=== PATIENT | female | born 1945 | race Two or more races ===

== ENCOUNTER → 2016-06-12 | Outpatient (CLI) | payer OTHER ==
[2014-07-24 16:47] VITALS: BP 145/75
[~2016-06-12] MED LIST: ATOR40TA59 PO; CARV3.122 PO; CLOP75TA27 PO; Hydrocodone Bit/Acetaminophen PO; INSU100I18 SQ; INSU100I27 SQ; LEVO75TA5 PO; LISI-338 PO; METF500T4 PO; METF850T2 PO
--- NOTE | 2016-06-12 16:41 | RAD ---
Lumbar spine radiographs History: Left sciatica for 5-6 months, fall. Comparison: None. Findings: AP and lateral views lumbar spine, 3 images. Osseous structures appear demineralized. On the lateral view, there also appears to be mild quantum mottle artifact which somewhat limits evaluation. There may be transitional anatomy present. No acute fracture or acute malalignment is identified. Multilevel facet degeneration is seen. Relatively mild multilevel degenerative disc disease is present. Impression: 1. Limited examination. No acute osseous traumatic injury identified. 2. Relatively mild degeneration.
== END | disposition home or self-care (01) ==
LOC: DXRADRC 15:56
PROVIDERS: ATTEND Nurse Practitioner Family
DX: M51.36 Other intervertebral disc degeneration, lumbar region (principal); M54.32 Sciatica, left side
CPT/HCPCS: 72100

== ENCOUNTER → 2016-07-07 | Outpatient (CLI) | payer OTHER ==
[2014-07-24 16:47] VITALS: BP 145/75
--- NOTE | 2016-07-07 14:13 | RAD ---
Indication right shoulder pain for 11 months. AP and axillary views of the right shoulder were obtained. There are significant degenerative changes at the glenohumeral joint. There is suspect bony demineralization. Mild degenerative changes are seen at the AC joint. Acute bony finding is not apparent
== END | disposition home or self-care (01) ==
LOC: DXRADRC 13:58
PROVIDERS: ATTEND Orthopaedic Surgery Sports Medicine
DX: M25.511 Pain in right shoulder (principal)
CPT/HCPCS: 73030

== ENCOUNTER 2016-09-11 16:25 | Observation (INO) | payer OTHER ==
[~2016-09-11] VITALS: Ht 142.2 cm; Wt 69.0 kg
[~2016-09-11 16:25] MED LIST changes: -CLOP75TA27 PO; +CLOP75TA57 PO
[2016-09-11] MEDS ORDERED: IV NORMAL SALINE 1,000ML 1,000 ML IV ONE (17:00)
--- NOTE | 2016-09-11 17:04 | RAD ---
Indication chest pain. A single view of the chest was obtained. Comparison is made to an examination March 20, 2016. Postoperative changes are noted. There is mild cardiomegaly. There is no congestive heart failure or focal infiltrate. Significant pleural fluid is not seen. There is no pneumothorax. There are degenerative changes about the shoulders. IMPRESSION: Mild cardiomegaly. No definite acute or focal process is seen in the chest
[2016-09-11 17:09] LABS: BASO # 0.1 x10^3/uL (0.0-0.2); BASO % 1 % (0-3); EOS # 0.2 x10^3/uL (0.0-0.7); EOS % 4 % (0-3); HEMATOCRIT 36.3 % (36.0-47.0); LYMPH # 1.7 x10^3/uL (1.0-4.8); LYMPH % 28 % (24-48); MEAN CORPUSCULAR HEMOGLOBIN 28 pg (25-35); MEAN CORPUSCULAR HGB CONC 33 g/dL (31-37); MEAN CORPUSCULAR VOLUME 84 fL (79-100); MONO # 0.7 x10^3/uL (0.0-1.1); MONO % 11 % (0-9); NEUT # 3.5 x10^3uL (1.8-7.7); NEUT % 56 % (31-73); PLATELET COUNT 157 x10^3/uL (140-400); RED BLOOD COUNT 4.35 x10^6/uL (3.50-5.40); RED CELL DISTRIBUTION WIDTH 14.4 % (11.5-14.5); WHITE BLOOD COUNT 6.3 x10^3/uL (4.0-11.0)
--- NOTE | 2016-09-11 17:15 | PHYS DOC ---
Past History Past Medical History: Diabetes, High Cholesterol, Hypertension, Hypothyroid Past Surgical History: Coronary Bypass Surgery Alcohol Use: None Drug Use: None Adult General Chief Complaint Chief Complaint: CHEST PAIN HPI HPI Patient is a 71-year-old female presenting to the emergency department for evaluation of multiple complaints including chest pain dizziness and nausea. Chest pain cared yesterday in her mid low chest and is sharp in nature and lasted for several minutes and then went away on its own. She denied any diaphoresis nausea vomiting or shortness of breath with the pain at that time. The pain was nonexertional. Patient all day today has been having nausea and a dizzy sensation. There is a language barrier but the dizziness is more of a passed out and they confirmed it is not a room spinning sensation to me. 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 Review of Systems Review of Systems Constitutional: Denies fever or chills [] Eyes: Denies change in visual acuity, redness, or eye pain [] HENT: Denies nasal congestion or sore throat [] Respiratory: Denies cough or shortness of breath [] Cardiovascular: + CP GI: Denies abdominal pain. + nausea. No vomiting, bloody stools or diarrhea [] : Denies dysuria or hematuria [] Musculoskeletal: Denies back pain or joint pain [] Integument: Denies rash or skin lesions [] Neurologic: Denies headache, focal weakness. + sensory changes [] Current Medications Current Medications Current Medications Medications (Trade) Dose Ordered Sig/Shakira Start Time Stop Time Status Last Admin Dose Admin Aspirin (Children'S Aspirin) 324 mg 1X ONCE 09/11/16 17:20 09/11/16 17:21 Ondansetron HCl (Zofran) 4 mg 1X ONCE 09/11/16 17:20 09/11/16 17:21 Sodium Chloride 1,000 ml @ 1,000 mls/hr 1X ONCE 09/11/16 17:00 09/11/16 17:59 Allergies Allergies Allergies Coded Allergies Type Severity Reaction Last Updated Verified No Known Drug Allergies 10/18/13 No Physical Exam Physical Exam Constitutional: Well developed, well nourished, no acute distress, non-toxic appearance. [] HENT: Normocephalic, atraumatic, bilateral external ears normal, oropharynx moist, no oral exudates, nose normal. [] Eyes: PERRLA, EOMI, conjunctiva normal, no discharge. [] Neck: Normal range of motion, no tenderness, supple, no stridor. [] Cardiovascular:Heart rate bradycardic with regular rhythm, no murmur [] Lungs & Thorax: Bilateral breath sounds clear to auscultation [] Abdomen: Bowel sounds normal, soft, no tenderness, no masses, no pulsatile masses. [] Skin: Warm, dry, no erythema, no rash. [] Back: No tenderness, no CVA tenderness. [] Extremities: No tenderness, no cyanosis, no clubbing, ROM intact, no edema. [] Neurologic: Alert and oriented X 3, normal motor function, normal sensory function, no focal deficits noted. [] Current Patient Data Vital Signs Vital Signs Date Time Temp Pulse Resp B/P (MAP) Pulse Ox O2 Delivery O2 Flow Rate FiO2 09/11/16 16:45 98.3 50 20 97 Room Air EKG EKG Sinus bradycardia at 47 bpm with normal axis no obvious ST elevation or depression and flattened and inverted T waves in leads V2 through V4 Radiology/Procedures Radiology/Procedures Indication chest pain. A single view of the chest was obtained. Comparison is made to an examination March 20, 2016. Postoperative changes are noted. There is mild cardiomegaly. There is no congestive heart failure or focal infiltrate. Significant pleural fluid is not seen. There is no pneumothorax. There are degenerative changes about the shoulders. IMPRESSION: Mild cardiomegaly. No definite acute or focal process is seen in the chest Course & Med Decision Making Course & Med Decision Making Patient certainly has multiple cardiac risk factors but she has atypical symptoms for her chest pain. Will get labs chest x-ray EKG and reassess. I spoke to the hospitalist Dr. Burrell and he agreed with admission. We'll give IV magnesium and by mouth calcium and trend her troponins and have cardiology consult on her as well. Patient and daughter aware and agreeable with plan. Dragon Disclaimer Dragon Disclaimer This chart was dictated in whole or in part using Voice Recognition software in a busy, high-work load, and often noisy Emergency Department environment. It may contain unintended and wholly unrecognized errors or omissions. Departure Departure: Impression: Primary Impression: Chest pain Additional Impressions: Dizziness Nausea Hypomagnesemia Hypocalcemia Elevated brain natriuretic peptide (BNP) level Disposition: 09 ADMITTED INPATIENT Admitting Physician: Cindy Burrell Condition: STABLE Referrals: WENDY CAST APRN (PCP) Problem Qualifiers Primary Impression: Chest pain Chest pain type: unspecified Qualified Codes: R07.9 - Chest pain, unspecified STANISLAW REYES DO Sep 11, 2016 17:15
--- NOTE | 2016-09-11 17:18 | EKG ---
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
[2016-09-11] MEDS ORDERED: ASPIRIN 81 MG TAB.CHEW PO ONE (17:20)
[2016-09-11] MEDS ORDERED: ONDANSETRON PF 4 MG/2 ML VIAL. IV ONE (17:20)
[2016-09-11 17:46] LABS: ALBUMIN 3.5 g/dL (3.4-5.0); ALBUMIN/GLOBULIN RATIO 1.2 (1.0-1.7); CALCIUM 8.3 mg/dL (8.5-10.1); CREATININE 0.8 mg/dL (0.6-1.0); GFR 70.7; MAGNESIUM 1.2 mg/dL (1.8-2.4); POTASSIUM 4.5 mmol/L (3.5-5.1); TOTAL BILIRUBIN 0.3 mg/dL (0.2-1.0); TOTAL PROTEIN 6.5 g/dL (6.4-8.2)
[2016-09-11] MEDS ORDERED: MAGNESIUM SULFATE 2GM 50 ML IV ONE (18:00)
[2016-09-11] MEDS ORDERED: ONDANSETRON PF 4 MG/2 ML VIAL. IV PRN (18:00)
[2016-09-11 18:48] VITALS: BP 154/72
[2016-09-11 18:54] LABS: BILIRUBIN,URINE NEG (NEG); CLARITY,URINE CLEAR; COLOR,URINE COLORLESS; GLUCOSE,URINE NEG (NEG); NITRITE,URINE NEG (NEG); UROBILINOGEN,URINE 0.2 mg/dL (0.2 mg/dL)
[2016-09-11 19:00] LABS: BACTERIA,URINE FEW /HPF (0-FEW); RBC,URINE 0 /HPF (0-2); SQUAMOUS EPITHELIAL CELL,UR OCC /LPF
[2016-09-11] MEDS ORDERED: DEXTROSE 50% 25 GM / 50ML DISP.SYRIN. IV PRN (19:15)
[2016-09-11] MEDS ORDERED: SITA100T PO (20:30)
[2016-09-11] MEDS ORDERED: PIOG30TA41 PO (20:30)
[2016-09-11] MEDS ORDERED: LISI10TA2 PO (20:30)
[2016-09-11] MEDS ORDERED: INSULIN DETEMIR 300 UNITS/3 ML INSULN.PEN. SQ SCH (21:00)
[2016-09-11] MEDS ORDERED: ATORVASTATIN CALCIUM 20 MG TABLET PO SCH (21:00)
[2016-09-11] MEDS: metFORMIN 500 MG TABLET PO SCH (21:06)
[2016-09-11] MEDS: CARVEDILOL 3.125 MG TABLET PO SCH (21:06)
[2016-09-11 23:14] VITALS: BP 132/72
[2016-09-12 05:01] LABS: BASO % 1 % (0-3); EOS # 0.2 x10^3/uL (0.0-0.7); EOS % 5 % (0-3); LYMPH # 2.1 x10^3/uL (1.0-4.8); LYMPH % 43 % (24-48); MEAN CORPUSCULAR HEMOGLOBIN 27 pg (25-35); MEAN CORPUSCULAR HGB CONC 32 g/dL (31-37); MEAN CORPUSCULAR VOLUME 84 fL (79-100); MONO # 0.6 x10^3/uL (0.0-1.1); MONO % 13 % (0-9); NEUT # 1.9 x10^3uL (1.8-7.7); NEUT % 39 % (31-73); PLATELET COUNT 138 x10^3/uL (140-400); RED BLOOD COUNT 4.07 x10^6/uL (3.50-5.40); RED CELL DISTRIBUTION WIDTH 14.6 % (11.5-14.5); WHITE BLOOD COUNT 4.8 x10^3/uL (4.0-11.0)
[2016-09-12 05:18] LABS: ALBUMIN 3.1 g/dL (3.4-5.0); CALCIUM 7.9 mg/dL (8.5-10.1); CREATININE 0.8 mg/dL (0.6-1.0); GFR 70.7; POTASSIUM 4.1 mmol/L (3.5-5.1); TOTAL BILIRUBIN 0.3 mg/dL (0.2-1.0); TOTAL PROTEIN 6.2 g/dL (6.4-8.2)
[2016-09-12 06:01] VITALS: BP 142/72
[2016-09-12] MEDS ORDERED: LEVOTHYROXINE 75 MCG TABLET PO SCH (07:00)
[2016-09-12] MEDS ORDERED: CALCIUM CARB/VIT D3 500/200 TABLET PO SCH (08:00)
[2016-09-12] MEDS: metFORMIN 500 MG TABLET PO SCH (08:10)
[2016-09-12] MEDS: CARVEDILOL 3.125 MG TABLET PO SCH (08:11)
[2016-09-12] MEDS ORDERED: LISINOPRIL 10 MG TABLET PO SCH (09:00)
--- NOTE | 2016-09-12 09:51 | PDOC2 ---
CONSULT Date of Admission DATE: 09/12/16 TIME: 09:42 Reason for Consult: cp, dizziness Problem List Problems Medical Problems: (1) Chest pain Status: Acute (2) Dizziness Status: Acute (3) Elevated brain natriuretic peptide (BNP) level Status: Acute (4) Hypocalcemia Status: Acute (5) Hypomagnesemia Status: Acute (6) Nausea Status: Acute History of Present Illness Patient is a 71-year-old female who presented to the emergency department for evaluation of chest pain dizziness and nausea. She reports chest pain which started yesterday in her mid to low chest. The pain is described as sharp, non radiating and lasting several minutes. It was non exertional and resolved spontaneously. She denied any associated symptoms. She also complained of a lightheadedness on sitting up or standing and feeling like she would fall. She reportedly felt better if she lay down. she had associated nausea. she has a history of bypass surgery in 1999 and her prior anginal symptoms were reportedly shortness of breath. She denies any dyspnea symptoms currently. She denied any congestive symptoms or palpitations. She does not speak [place]serratian but is accompanied by an Montserratian speaking family member. Functional capacity is reported as cognos developer without problems, ambulates with a cane for balance. Past Medical History Cardiac cath 12/01/13 Severe 3 vessel coronary disease, patent BALTAZAR to LAD, Patent LCX stent, Patent stents in RCA, diffuse small vessel disease. MPI 10/18/13 Small to moderate sized reversible defect involving apicolateral wall and extending into distal anterolateral wall consistent with ischemia. Echo 04/18/14 LVEF 55-60%, normal wall motion. 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 Current Medications Current Medications Aspirin (Children'S Aspirin) 324 mg 1X ONCE PO Last administered on 09/11/16t 17:17; Start 09/11/16 at 17:20; Stop 09/11/16 at 17:21; Status DC Sodium Chloride 1,000 ml @ 1,000 mls/hr 1X ONCE IV Last administered on 17:18; Start 09/11/16 at 17:00; Stop 09/11/16 at 17:59; Status DC Ondansetron HCl (Zofran) 4 mg 1X ONCE IV Last administered on 09/11/16 17:17; Start 09/11/16 at 17:20; Stop 09/11/16 at 17:21; Status DC Magnesium Sulfate 50 ml @ 25 mls/hr 1X ONCE IV Last administered on 09/11/16 18:00; Start 09/11/16 at 18:00; Stop 09/11/16 at 19:59; Status DC Calcium/Vitamin D (Oscal D 500mg/ 200uts) 1 tab BIDWMEALS PO Last administered on 09/12/16 08:10; Start 09/12/16 at 08:00 Ondansetron HCl (Zofran) 4 mg PRN Q4HRS PRN IV NAUSEA/VOMITING; Start 09/11/16 at 18:00; Stop 09/12/16 at 17:59 Dextrose 12.5 gm PRN Q15MIN PRN IV SEE COMMENTS; Start 09/11/16 at 19:15 Carvedilol (Coreg) 3.125 mg BID PO Last administered on 09/12/16 08:11; Start 09/11/16 at 21:00 Insulin Detemir (Levemir) 22 units QHS SQ Last administered on 09/11/16 21:12; Start 09/11/16 at 21:00 Levothyroxine Sodium (Synthroid) 75 mcg DAILY07 PO Last administered on 06:31; Start 09/12/16 at 07:00 Lisinopril (Prinivil) 10 mg DAILY PO Last administered on 09/12/16 08:11; Start 09/12/16 at 09:00 Metformin HCl (Glucophage) 500 mg BIDWMEALS PO Last administered on 09/12/16 08 :10; Start 09/11/16 at 20:45 Atorvastatin Calcium (Lipitor) 40 mg QHS PO Last administered on 09/11/16 21:06 ; Start 09/11/16 at 21:00 Pioglitazone HCl (Actos) 30 mg DAILYWLUN PO ; Start 09/12/16 at 12:00 Linagliptin (Tradjenta) 5 mg DAILYWLUN PO ; Start 09/12/16 at 12:00 Active Scripts Active Reported Actos (Pioglitazone Hcl) 30 Mg Tablet 30 Mg PO DAILYWLUN Januvia (Sitagliptin Phosphate) 100 Mg Tablet 100 Mg PO DAILYWLUN Lisinopril 10 Mg Tablet 10 Mg PO DAILY Levemir Flextouch (Insulin Detemir) 100 Unit/1 Ml Insuln.pen 22 Unit SQ QHS Metformin Hcl 500 Mg Tablet 500 Mg PO BIDWMEALS Carvedilol 3.125 Mg Tablet 1 Tab PO BID Levothyroxine Sodium 75 Mcg Tablet 1 Tab PO DAILY07 Atorvastatin Calcium 40 Mg Tablet 1 Tab PO HS Indication: high cholesterol Last dose today next dose tomorrow Allergies: Coded Allergies: No Known Drug Allergies (Unverified , 10/18/13) Review of System as per HPI General: Alert, Oriented X3, Cooperative, No acute distress HEENT: Atraumatic, EOMI, Mucous membr. moist/pink Lungs: Other (few basilar crackles clear with cough, otherwise clear) Heart: Regular rate, Normal S1, Normal S2, Other (no gallops, clicks or rubs) Abdomen: Normal bowel sounds, Soft Extremities: No cyanosis, No edema, Normal pulses Psych/Mental Status: Mental status NL, Mood NL VITALS Vital Signs Date Time Temp Pulse Resp B/P (MAP) Pulse Ox O2 Delivery O2 Flow Rate FiO2 09/12/16 08:11 55 142/72 09/12/16 06:01 97.7 18 93 Room Air Labs Laboratory Tests Test 09/11/16 16:50 09/11/16 17:15 09/11/16 17:53 09/11/16 19:22 White Blood Count 6.3 x10^3/uL (4.0-11.0) Red Blood Count 4.35 x10^6/uL (3.50-5.40) Hemoglobin 12.0 g/dL (12.0-15.5) Hematocrit 36.3 % (36.0-47.0) Mean Corpuscular Volume 84 fL (79-100) Mean Corpuscular Hemoglobin 28 pg (25-35) Mean Corpuscular Hemoglobin Concent 33 g/dL (31-37) Red Cell Distribution Width 14.4 % (11.5-14.5) Platelet Count 157 x10^3/uL (140-400) Neutrophils (%) (Auto) 56 % (31-73) Lymphocytes (%) (Auto) 28 % (24-48) Monocytes (%) (Auto) 11 % (0-9) Eosinophils (%) (Auto) 4 % (0-3) Basophils (%) (Auto) 1 % (0-3) Neutrophils # (Auto) 3.5 x10^3uL (1.8-7.7) Lymphocytes # (Auto) 1.7 x10^3/uL (1.0-4.8) Monocytes # (Auto) 0.7 x10^3/uL (0.0-1.1) Eosinophils # (Auto) 0.2 x10^3/uL (0.0-0.7) Basophils # (Auto) 0.1 x10^3/uL (0.0-0.2) Sodium Level 138 mmol/L (136-145) Potassium Level 4.5 mmol/L (3.5-5.1) Chloride Level 102 mmol/L (98-107) Carbon Dioxide Level 29 mmol/L (21-32) Anion Gap 7 (6-14) Blood Urea Nitrogen 20 mg/dL (7-20) Creatinine 0.8 mg/dL (0.6-1.0) Estimated GFR (Cockcroft-Gault) 70.7 BUN/Creatinine Ratio 25 (6-20) Glucose Level 148 mg/dL (70-99) Calcium Level 8.3 mg/dL (8.5-10.1) Magnesium Level 1.2 mg/dL (1.8-2.4) Total Bilirubin 0.3 mg/dL (0.2-1.0) Aspartate Amino Transf (AST/SGOT) 20 U/L (15-37) Alanine Aminotransferase (ALT/SGPT) 28 U/L (14-59) Alkaline Phosphatase 67 U/L (46-116) Troponin I Quantitative < 0.017 ng/mL (0-0.055) AS-Lws-W-Type Natriuretic Peptide 385 pg/mL (0-124) Total Protein 6.5 g/dL (6.4-8.2) Albumin 3.5 g/dL (3.4-5.0) Albumin/Globulin Ratio 1.2 (1.0-1.7) Lipase 133 U/L (73-393) Urine Collection Type Void Urine Color Colorless Urine Clarity Clear Urine pH 6.5 Urine Specific [place] <=1.005 Urine Protein Neg (NEG-TRACE) Urine Glucose (UA) Neg mg/dL (NEG) Urine Ketones (Stick) Neg mg/dL (NEG) Urine Blood Neg (NEG) Urine Nitrite Neg (NEG) Urine Bilirubin Neg (NEG) Urine Urobilinogen Dipstick 0.2 mg/dL (0.2 mg/dL) Urine Leukocyte Esterase Mod (NEG) Urine RBC 0 /HPF (0-2) Urine WBC 11-20 /HPF (0-4) Urine Squamous Epithelial Cells Occ /LPF Urine Bacteria Few /HPF (0-FEW) Glucose (Fingerstick) 139 mg/dL (70-99) Test 09/11/16 22:45 09/12/16 04:40 09/12/16 07:57 Troponin I Quantitative < 0.017 ng/mL (0-0.055) < 0.017 ng/mL (0-0.055) White Blood Count 4.8 x10^3/uL (4.0-11.0) Red Blood Count 4.07 x10^6/uL (3.50-5.40) Hemoglobin 11.0 g/dL (12.0-15.5) Hematocrit 34.0 % (36.0-47.0) Mean Corpuscular Volume 84 fL (79-100) Mean Corpuscular Hemoglobin 27 pg (25-35) Mean Corpuscular Hemoglobin Concent 32 g/dL (31-37) Red Cell Distribution Width 14.6 % (11.5-14.5) Platelet Count 138 x10^3/uL (140-400) Neutrophils (%) (Auto) 39 % (31-73) Lymphocytes (%) (Auto) 43 % (24-48) Monocytes (%) (Auto) 13 % (0-9) Eosinophils (%) (Auto) 5 % (0-3) Basophils (%) (Auto) 1 % (0-3) Neutrophils # (Auto) 1.9 x10^3uL (1.8-7.7) Lymphocytes # (Auto) 2.1 x10^3/uL (1.0-4.8) Monocytes # (Auto) 0.6 x10^3/uL (0.0-1.1) Eosinophils # (Auto) 0.2 x10^3/uL (0.0-0.7) Basophils # (Auto) 0.0 x10^3/uL (0.0-0.2) Sodium Level 141 mmol/L (136-145) Potassium Level 4.1 mmol/L (3.5-5.1) Chloride Level 106 mmol/L (98-107) Carbon Dioxide Level 30 mmol/L (21-32) Anion Gap 5 (6-14) Blood Urea Nitrogen 19 mg/dL (7-20) Creatinine 0.8 mg/dL (0.6-1.0) Estimated GFR (Cockcroft-Gault) 70.7 BUN/Creatinine Ratio 24 (6-20) Glucose Level 71 mg/dL (70-99) Calcium Level 7.9 mg/dL (8.5-10.1) Magnesium Level 1.7 mg/dL (1.8-2.4) Total Bilirubin 0.3 mg/dL (0.2-1.0) Aspartate Amino Transf (AST/SGOT) 18 U/L (15-37) Alanine Aminotransferase (ALT/SGPT) 25 U/L (14-59) Alkaline Phosphatase 58 U/L (46-116) Total Protein 6.2 g/dL (6.4-8.2) Albumin 3.1 g/dL (3.4-5.0) Albumin/Globulin Ratio 1.0 (1.0-1.7) Glucose (Fingerstick) 74 mg/dL (70-99) Images EKG - sinus bradycardia with no acute abnormalities Assessment/Plan 1. Chest pain, atypical - VA ruled out 2. lightheadedness - mild bradycardia, consider outpatient monitoring, check orthostatic VS 3. bradycardia - mild, now asymptomatic 4. CAD/CABG status - last cath with patent grafts and stents in 2013 5. hypertension - fair control 6. hyperlipidemia - check lipids Suggest check echocardiogram and lipids, resume home meds, check orthostatic VS. If no significant abn, outpatient MPI and follow up. Problems: LOGAN OLVERA APRN Sep 12, 2016 09:51
[2016-09-12] MEDS ORDERED: MAGNESIUM SULFATE 1GM 100 ML IV ONE (10:10)
[2016-09-12 10:51] VITALS: BP 133/69
[2016-09-12 10:52] VITALS: BP_SYST 131; BP_SYST 133; BP_DIAS 67; BP_DIAS 76
[2016-09-12] MEDS ORDERED: LINAGLIPTIN 5 MG TABLET PO SCH (12:00)
[2016-09-12] MEDS ORDERED: PIOGLITAZONE 15 MG TABLET. PO SCH (12:00)
[2016-09-12 14:38] VITALS: BP 118/73
== END 2016-09-12 15:02 | disposition left against medical advice (07) ==
LOC: ER 16:25 → 1 SOUTH 17:53
PROVIDERS: ADMIT Internal Medicine; ATTEND Internal Medicine
DX: R07.9 Chest pain, unspecified (principal); R42 Dizziness and giddiness; R11.0 Nausea; E83.42 Hypomagnesemia; E83.51 Hypocalcemia; E03.9 Hypothyroidism, unspecified; E11.40 Type 2 diabetes mellitus with diabetic neuropathy, unspecified; E78.00 Pure hypercholesterolemia, unspecified; E78.5 Hyperlipidemia, unspecified; I51.7 Cardiomegaly; I11.9 Hypertensive heart disease without heart failure; I25.10 Atherosclerotic heart disease of native coronary artery without angina pectoris; Z83.3 Family history of diabetes mellitus; Z95.1 Presence of aortocoronary bypass graft; Z95.5 Presence of coronary angioplasty implant and graft
CPT/HCPCS: 36415; 71010; 80053; 80061; 81001; 82947; 83690; 83735; 83880; 84484; 85027; 87086; 93005; 97161; 97165; G0378; G0379; G8978; G8979; G8980; J1815; J2405; J3475; 96361; 96365; 96366; 96372; 96375; 99285-25; J7030

== ENCOUNTER → 2016-09-16 | Outpatient (CLI) | payer OTHER ==
[2016-09-12 14:38] VITALS: BP 118/73
[~2016-09-16] MED LIST changes: +LISI10TA2 PO; +PIOG30TA41 PO; +SITA100T PO
--- NOTE | 2016-09-16 10:45 | CARD ---
APPROVED REPORT EXAM: Two-dimensional and M-mode echocardiogram with Doppler and color Doppler. Other Information Quality : GoodHR: 55bpm Rhythm : Bradycardia INDICATION Cardiac Disease: CAD Chest Pain 2D DIMENSIONS RVDd3.7 (2.9-3.5cm)Left Atrium(2D)3.4 (1.6-4.0cm) IVSd1.0 (0.7-1.1cm)Aortic Root(2D)2.6 (2.0-3.7cm) LVDd5.0 (3.9-5.9cm)LVOT Diameter2.2 (1.8-2.4cm) PWd1.0 (0.7-1.1cm)LVDs3.6 (2.5-4.0cm) FS (%) 28.0 %SV64.2 ml LVEF(%)53.9 (>50%) Aortic Valve AoV Peak Jose De Jesus.158.7cm/sAoV VTI36.8cm AO Peak GR.10.1mmHgLVOT Peak Jose De Jesus.118.5cm/s LVOT VTI 28.41cmAO Mean GR.5mmHg MARTHA (VMAX)2.36tv5RPC (VTI)2.88cm2 Mitral Valve MV E Ivqndtqa71.6cm/sMV E Peak Gr.4mmHg MV DECEL [id number] A Hpytxzwn54.1cm/s MV E Mean Gr.1mmHgE/A Ratio0.7 MV A [id number] Pulmonary Valve PV Peak Vtomefgd897.9cm/sPV Peak Grad.6mmHg Tricuspid Valve TR P. Fyfjnoac046vy/sTR Peak Gr.36mmHg Pulmonary Vein S1 Twlpxafw55.1cm/sD2 Clmagvex98.7cm/s LEFT VENTRICLE The left ventricle is normal size. There is normal left ventricular wall thickness. The left ventricu lar systolic function is normal and the ejection fraction is within normal range. The Ejection Fracti on is 55-60%. There is normal LV segmental wall motion. Transmitral Doppler flow pattern is Grade I-a bnormal relaxation pattern. RIGHT VENTRICLE The right ventricle is normal size. There is normal right ventricular wall thickness. The right ventr icular systolic function is normal. ATRIA The left atrium is mildly dilated. The right atrium size is normal. The interatrial septum is intact with no evidence for an atrial septal defect or patent foramen ovale as noted on 2-D or Doppler imagi ng. AORTIC VALVE The aortic valve is mildly sclerotic. The aortic valve is trileaflet. Doppler and Color Flow revealed no significant aortic regurgitation. There is no significant aortic valvular stenosis. MITRAL VALVE The mitral valve leaflets are mildly thickened. There is no evidence of mitral valve prolapse. There is no mitral valve stenosis. Doppler and Color Flow revealed trace mitral regurgitation. TRICUSPID VALVE Doppler and Color Flow revealed mild tricuspid regurgitation. The pulmonary artery systolic pressure is estimated at 39 mmHg. PULMONIC VALVE The pulmonic valve is not well visualized but appears to open well. Doppler and Color Flow revealed t race pulmonic valvular regurgitation. There is no pulmonic valvular stenosis by spectral Doppler. GREAT VESSELS The aortic root is normal in size. The ascending aorta is normal in size. The IVC is normal in size a nd collapses >50% with inspiration. PERICARDIAL EFFUSION There is no evidence of significant pericardial effusion. Critical Notification Critical Value: No <Conclusion> The left ventricular systolic function is normal and the ejection fraction is within normal range. Th e Ejection Fraction is 55-60%. There is normal LV segmental wall motion.
== END | disposition home or self-care (01) ==
LOC: ECHO 07:55
PROVIDERS: ATTEND Internal Medicine Cardiovascular Disease
DX: I25.10 Atherosclerotic heart disease of native coronary artery without angina pectoris (principal); I07.1 Rheumatic tricuspid insufficiency
CPT/HCPCS: 93306

== ENCOUNTER → 2016-09-17 | Outpatient (CLI) | payer OTHER ==
[2016-09-12 14:38] VITALS: BP 118/73
[~2016-09-17] MED LIST changes: +REGADENOSON 0.4 MG/5 ML DISP.SYRIN. IV ONE
--- NOTE | 2016-09-17 17:01 | RAD ---
APPROVED REPORT Test Type: Pharmacological Stress Nurse/Tech: RT Ilia (R) (N) Medications: SEE EHR Medical History: See Electronic Medical Record Resting Heart Rate: 65 bpm Resting Blood Pressure: 167/63mmHg Pretest Chest Pain: None Pharm. Details Pharmacologic stress testing was performed using 0.4mg per 5ml of regadenoson given intravenously ove r 7-10 seconds. Stress Symptoms Nausea, PVC's and NS ST/T D's infero/lat leads POST EXERCISE Max HR: 103 bpm Max Blood Pressure: 169/70mmHg Blood Pressure response to exercise: Normal Heart Rate response to exercise: Normal Chest Pain: No. INTERPRETATION Stress EKG Conclusion: The resting EKG showed a sinus rhythm and mild nonspecific ST changes. The stress EKG shows no significant changes from baseline. No EKG evidence of stress induced ischemia. LV Perfusion The stress scans show a mild defect in the distal anterior apical region. The rest scans show a mild apical defect. Nuclear images show an distal anterior apical defect suggestive but not diagnostic of reversible isch emia. Wall Motion LV systolic function is normal with an ejectionn fraction of greater than 70%. Conclusion 1. No EKG changes of stress induced ischemia. 2. Nuclear imaging suggestive but not diagnostic of distal anterion-apical reversible ischemia. 3. Normal LV systolic function with an ejection fraction of greater than 70%. 4. Moderate risk Lexiscan nuclear stress test.
== END | disposition home or self-care (01) ==
LOC: NM 08:36
PROVIDERS: ATTEND Internal Medicine Cardiovascular Disease
DX: I25.10 Atherosclerotic heart disease of native coronary artery without angina pectoris (principal); I10 Essential (primary) hypertension; Z95.5 Presence of coronary angioplasty implant and graft
CPT/HCPCS: 78452; 93017; 96374; 96375; 96376; A9500; J2785

== ENCOUNTER → 2016-12-23 | Outpatient (CLI) | payer OTHER ==
[~2016-12-23] MED LIST changes: -REGADENOSON 0.4 MG/5 ML DISP.SYRIN. IV ONE
--- NOTE | 2016-12-23 14:41 | RAD ---
Indication: Right knee pain for several weeks with no known injury. Technique: 3 views of the right knee are submitted for review. No comparison is available. Findings: There is no fracture or dislocation. There is no joint effusion or soft tissue swelling. There is mild tricompartmental osteoarthritis with mild narrowing of the medial compartment. There are vascular calcifications. There is bone demineralization. Impression: Mild tricompartmental osteoarthritis, greatest in the medial compartment.
== END | disposition home or self-care (01) ==
LOC: DXRADRC 08:36
PROVIDERS: ATTEND Nurse Practitioner Family
DX: M17.11 Unilateral primary osteoarthritis, right knee (principal); M25.861 Other specified joint disorders, right knee
CPT/HCPCS: 73562

== ENCOUNTER → 2017-01-19 | Outpatient (CLI) | payer OTHER ==
--- NOTE | 2017-01-19 12:45 | RAD ---
DATE: January 19, 2017 EXAM: DIGITAL SCREEN BILAT W/CAD HISTORY: Routine screening. COMPARISON: May 12, 2013 TECHNIQUE: 2D digital CC and MLO views of each breast were obtained. This study was interpreted with the benefit of Computerized Aided Detection (CAD). FINDINGS: The breast parenchyma is heterogeneously dense, category C, which may obscure small masses. There is no worrisome mass or area of architectural distortion. There are no suspicious groupings of microcalcifications . There are benign calcifications. IMPRESSION: Stable mammogram with benign findings. BI-RADS CATEGORY: 2 BENIGN FINDING RECOMMENDED FOLLOW-UP: 12M 12 MONTH FOLLOW-UP PQRS compliance statement: Patient information was entered into a reminder system with a target due date for the next mammogram. Mammography is a sensitive method for finding small breast cancers, but it does not detect them all and is not a substitute for careful clinical examination. A negative mammogram does not negate a clinically suspicious finding and should not result in delay in biopsying a clinically suspicious abnormality. "Our facility is accredited by the [employer] Mammography Program."
== END | disposition home or self-care (01) ==
LOC: MAMMO 08:26
PROVIDERS: ATTEND Nurse Practitioner Family
DX: Z12.31 Encounter for screening mammogram for malignant neoplasm of breast (principal)
CPT/HCPCS: G0202; 77067

== ENCOUNTER → 2017-07-24 | Outpatient (CLI) | payer OTHER ==
[~2017-07-24] MED LIST changes: -METF500T4 PO; +METF500T5 PO
[2017-07-24 10:31] LABS: BASO % 1 % (0-3); EOS # 0.1 x10^3/uL (0.0-0.7); EOS % 2 % (0-3); HEMATOCRIT 37.8 % (36.0-47.0); HEMOGLOBIN 12.1 g/dL (12.0-15.5); LYMPH # 1.1 x10^3/uL (1.0-4.8); LYMPH % 20 % (24-48); MEAN CORPUSCULAR HEMOGLOBIN 27 pg (25-35); MEAN CORPUSCULAR HGB CONC 32 g/dL (31-37); MEAN CORPUSCULAR VOLUME 85 fL (79-100); MONO # 0.5 x10^3/uL (0.0-1.1); MONO % 10 % (0-9); NEUT # 3.8 x10^3uL (1.8-7.7); NEUT % 67 % (31-73); PLATELET COUNT 167 x10^3/uL (140-400); RED BLOOD COUNT 4.46 x10^6/uL (3.50-5.40); RED CELL DISTRIBUTION WIDTH 13.9 % (11.5-14.5); WHITE BLOOD COUNT 5.6 x10^3/uL (4.0-11.0)
[2017-07-24 10:34] LABS: CALCIUM 8.5 mg/dL (8.5-10.1); CREATININE 0.7 mg/dL (0.6-1.0); GFR 82.3; POTASSIUM 4.5 mmol/L (3.5-5.1)
[2017-07-24 10:49] LABS: BACTERIA,URINE 0 /HPF (0-FEW); BILIRUBIN,URINE NEG (NEG); CLARITY,URINE HAZY; COLOR,URINE STRAW; GLUCOSE,URINE 100 mg/dL (NEG); NITRITE,URINE NEG (NEG); RBC,URINE 0 /HPF (0-2); SQUAMOUS EPITHELIAL CELL,UR OCC /LPF; UROBILINOGEN,URINE 0.2 mg/dL (0.2 mg/dL)
[2017-07-24 13:44] LABS: FREE T4 1.23 ng/dL (0.76-1.46); THYROID STIM HORMONE (TSH) 2.363 uIU/mL (0.358-3.740)
[2017-07-25 01:20] LABS: HEMOGLOBIN A1C 8.9 % (4.8-5.6)
== END | disposition home or self-care (01) ==
LOC: LAB 08:24
PROVIDERS: ATTEND Nurse Practitioner Family
DX: E11.9 Type 2 diabetes mellitus without complications (principal); E03.9 Hypothyroidism, unspecified; I11.9 Hypertensive heart disease without heart failure; E78.5 Hyperlipidemia, unspecified
CPT/HCPCS: 36415; 80048; 80061; 81001; 83036; 84439; 84443; 84481; 85025; 87086

== ENCOUNTER → 2017-10-14 | Outpatient (CLI) | payer OTHER ==
--- NOTE | 2017-10-14 15:41 | RAD ---
Pelvis with left hip, 3 views, 10/14/2017: HISTORY: Fall, follow-up fracture No previous radiographs are available at this time for comparison purposes. There is a surgical plate with multiple screws in place transfixing an intertrochanteric fracture of the right hip. The major fracture line is still visible. Lesser and greater trochanteric fragments are displaced proximally. The tips of the pins in the femoral head lie well beneath the articular cortex. The femoral head is seated within the acetabulum. The hip joint spaces are well-maintained with only mild marginal spurring. No additional fracture is seen. Extensive aortoiliac and femoral arterial calcifications are present. IMPRESSION: Incompletely healed, internally fixed intertrochanteric fracture of the left hip. Electronically signed by: Yariel Boyd MD (10/14/2017 3:37 PM) [facility]
== END | disposition home or self-care (01) ==
LOC: PMG 14:59
PROVIDERS: ATTEND Neuromusculoskeletal Medicine & OMM
DX: S72.142D Displaced intertrochanteric fracture of left femur, subsequent encounter for closed fracture with routine healing (principal); I11.9 Hypertensive heart disease without heart failure; E11.9 Type 2 diabetes mellitus without complications; E78.5 Hyperlipidemia, unspecified; E78.00 Pure hypercholesterolemia, unspecified; Z83.3 Family history of diabetes mellitus; E03.9 Hypothyroidism, unspecified; E83.51 Hypocalcemia; I25.10 Atherosclerotic heart disease of native coronary artery without angina pectoris; Z95.1 Presence of aortocoronary bypass graft; Z95.5 Presence of coronary angioplasty implant and graft; Z90.710 Acquired absence of both cervix and uterus; X58.XXXD Exposure to other specified factors, subsequent encounter
CPT/HCPCS: 73502

== ENCOUNTER → 2017-10-30 | Outpatient (CLI) | payer OTHER ==
[2017-10-30 09:40] LABS: ALBUMIN 3.4 g/dL (3.4-5.0); CREATININE 0.7 mg/dL (0.6-1.0); GFR 82.3; POTASSIUM 4.1 mmol/L (3.5-5.1); TOTAL BILIRUBIN 0.4 mg/dL (0.2-1.0); TOTAL PROTEIN 6.9 g/dL (6.4-8.2)
== END | disposition home or self-care (01) ==
LOC: LAB 08:26
PROVIDERS: ATTEND Internal Medicine Cardiovascular Disease
DX: I25.10 Atherosclerotic heart disease of native coronary artery without angina pectoris (principal); I11.9 Hypertensive heart disease without heart failure; E11.9 Type 2 diabetes mellitus without complications; E78.5 Hyperlipidemia, unspecified; E78.00 Pure hypercholesterolemia, unspecified; E03.9 Hypothyroidism, unspecified; Z90.710 Acquired absence of both cervix and uterus; Z83.3 Family history of diabetes mellitus
CPT/HCPCS: 36415; 80053; 80061

== ENCOUNTER → 2018-07-30 | Outpatient (CLI) | payer OTHER ==
[~2018-07-30] MED LIST changes: -CARV3.122 PO; +CARV3.1230 PO; +METF500T16 PO; -METF500T5 PO; -METF850T2 PO; +METF850T8 PO
--- NOTE | 2018-07-30 12:21 | RAD ---
DATE: 07/30/2018 EXAM: DIGITAL SCREEN BILAT W/CAD HISTORY: Routine screening COMPARISON: 01/19/2017 This study was interpreted with the benefit of Computerized Aided Detection (CAD). Breast Density: HETERO The breast parenchyma is heterogenously dense, which could reduce sensitivity of mammography. Breast parenchyma level C. FINDINGS: No new or enlarging breast densities are seen. Benign type calcifications are again noted. No suspicious microcalcifications have developed. IMPRESSION: Stable mammograms without evidence of malignancy. BI-RADS CATEGORY: 2 BENIGN FINDING(S) RECOMMENDED FOLLOW-UP: 12M 12 MONTH FOLLOW-UP PQRS compliance statement: Patient information was entered into a reminder system with a target due date for the next mammogram. Mammography is a sensitive method for finding small breast cancers, but it does not detect them all and is not a substitute for careful clinical examination. A negative mammogram does not negate a clinically suspicious finding and should not result in delay in biopsying a clinically suspicious abnormality. "Our facility is accredited by the [employer] Mammography Program."
== END | disposition home or self-care (01) ==
LOC: MAMMO 11:28
PROVIDERS: ATTEND Family Medicine
DX: Z12.31 Encounter for screening mammogram for malignant neoplasm of breast (principal); N64.89 Other specified disorders of breast
CPT/HCPCS: 77067

== ENCOUNTER → 2018-08-31 | Outpatient (CLI) | payer OTHER ==
--- NOTE | 2018-08-31 17:10 | RAD ---
3 view study of the right foot Clinical indications: Right toe ulcer. FINDINGS: No acute fracture or dislocation or osteolytic process is evident. Prominent plantar spur of the calcaneus is seen. Diffuse generalized osteopenia is seen. No soft tissue air is seen. IMPRESSION: No osteomyelitis is seen radiographically. Electronically signed by: Go Mohan MD (08/31/2018 5:07 PM) [id number]
== END | disposition home or self-care (01) ==
LOC: DXRAD 10:44
PROVIDERS: ATTEND Family Medicine
DX: E11.621 Type 2 diabetes mellitus with foot ulcer (principal); L97.519 Non-pressure chronic ulcer of other part of right foot with unspecified severity; M77.31 Calcaneal spur, right foot; M85.88 Other specified disorders of bone density and structure, other site
CPT/HCPCS: 73630

== ENCOUNTER → 2018-11-04 | Outpatient (CLI) | payer OTHER ==
--- NOTE | 2018-11-04 18:28 | RAD ---
MR#: [id number] Date of Study: 11/04/2018 Ordering Physician: CHARLENE VEGA, Referring Physician: CHARLENE VEGA, Tech: Nicci Martinez, RDMS, RVT, RTR APPROVED REPORT Patient Location: OUT-PATIENT Indications Non-healing Ulcer: Right PVD Risk Factors Grayscale images demonstrate extensive diffuse plaque. On the right there is likely greater than 50% stenosis involving the popliteal artery. Below the knee there is severe diffuse disease. The posterio r tibial artery is likely occluded distally. There is diminished waveforms in the peroneal artery. Th e anterior tibial artery is not visualized. Likely collateral flow in the form of peroneal collateral s to the dorsalis pedis artery. Spectral waveforms on the left leg are completely monophasic. There is likely high-grade stenosis inv olving the common femoral artery bifurcation. The mid SFA is occluded. Distal reconstitution occurs a t the popliteal artery. The posterior tibial is occluded. The anterior tibial also appears to be occl uded. There is also 1 vessel runoff on the left side likely in the form of peroneal artery. VELOCITY AND DOPPLER WAVEFORM ANALYSIS RIGHT cm/secWaveformSeverity LEFT cm/secWaveform Severity pCFA 149.0pCFA 128.1 Prof Fem Art. 146.2Prof Fem Art. 244.2 Fem Art Prox. 103.7Fem Art Prox. 60.4 Fem Art Mid. 100.0Fem Art Mid. Occluded Fem Art Dist. 149.0Fem Art Dist. 42.0 Pop Art(AK) 211.7Pop Art(AK) 119.8 LABORATORY CLERK Prox. 27.9PTA Prox. Occluded LABORATORY CLERK Dist. OccludedPTA Dist. Occluded Per Art Prox. 18.9Per Art Prox. 43.0 JAYESH Prox. OccludedATA Prox. Occluded DPA 46DPA Occluded Critical Notification Critical Value: No <Conclusion> 1. Severe bilateral mid to distal SFA, popliteal and below-knee disease. Signed by : Charlene Vega, Electronically Approved : 11/04/2018 18:28:34
== END | disposition home or self-care (01) ==
LOC: US 14:02
PROVIDERS: ATTEND Internal Medicine Cardiovascular Disease
DX: I70.203 Unspecified atherosclerosis of native arteries of extremities, bilateral legs (principal); L97.919 Non-pressure chronic ulcer of unspecified part of right lower leg with unspecified severity
CPT/HCPCS: 93925

== ENCOUNTER → 2019-02-17 | Outpatient (CLI) | payer OTHER ==
--- NOTE | 2019-02-19 11:21 | RAD ---
Right elbow 2 views. HISTORY: Elbow pain 2 views were taken of the right elbow. There is extensive vascular calcification. There is slight spurring from mild arthritis. There is no fracture or other acute osseous abnormality. IMPRESSION: 1. Mild arthritis right elbow. 2. No fracture or other acute osseous abnormality. Electronically signed by: Edi Lynch MD (02/19/2019 11:18 AM) [facility]
--- NOTE | 2019-02-19 11:24 | RAD ---
Bilateral hips 2 views each with one view pelvis. HISTORY: Bilateral hip pain Single view was taken of the pelvis. There is no pelvic fracture or acute osseous abnormality. AP and lateral views were taken of the right hip. There is a long-standing the femoral artery on the right. There is no fracture or acute osseous abnormality in the right hip. Left hip AP and lateral views were taken of the left hip. There is evidence of an old healed intertrochanteric fracture at the hip. There is a plate with hip nails. There is myositis ossificans along the medial aspect of the femoral neck versus an isolated bone fragment versus a joint body. There is been healing of the previous fracture compared to the study from October 2017 with little other interval change. IMPRESSION: 1. No acute finding in the pelvis. 2. No fracture or acute osseous normality in the right hip. 3. Old healed left hip fracture with little change compared to prior studies. Electronically signed by: Edi Lynch MD (02/19/2019 11:21 AM) [facility]
--- NOTE | 2019-02-21 15:24 | RAD ---
MR#: [id number] Date of Study: 02/17/2019 Ordering Physician: CHARLENE JALLOH, Referring Physician: Pipo SALZAAR: Kyara Clayton RDMS RVT APPROVED REPORT Patient Location: OUT-PATIENT Indications PVD Risk Factors Grayscale images of the bilateral lower extremity arteries reveals moderate to severe diffuse plaque. On the left side there is occlusion of the mid SFA with reconstitution at the level of the popliteal artery. Severely diminished flow is noted in the anterior tibial vessels. The posterior tibial and pe roneal velocities are blunted but the vessels appear to be patent. On the right there are normal triphasic and biphasic velocities to the popliteal artery. Below the kn ee the peroneal and anterior tibial artery are not well visualized. The posterior tibial artery appea rs to be patent. VELOCITY AND DOPPLER WAVEFORM ANALYSIS RIGHT cm/secWaveformSeverity LEFT cm/secWaveform Severity pCFA 113.0TriphasicpCFA 121.0Biphasic Prof Fem Art. 86.0BiphasicProf Fem Art. 138.0Biphasic Fem Art Prox. 92.0BiphasicFem Art Prox. 64.0Monophasic Fem Art Mid. 110.0BiphasicFem Art Mid. Occluded Fem Art Dist. 87.0BiphasicFem Art Dist. Occluded Pop Art(AK) 40.0BiphasicPop Art(AK) 9.0Monophasic BATTERY WRECKER OPERATOR Prox. 67.0BiphasicPTA Prox. BATTERY WRECKER OPERATOR Dist. 65.0BiphasicPTA Dist. 39.0Monophasic Per Art Mid. Per Art Mid. 29.0Monophasic DPA 14MonophasicDPA Occluded Critical Notification Critical Value: No <Conclusion> 1. Patent right SFA stent. 2. Severe left sided disease Signed by : Charlene Jalloh, Electronically Approved : 02/21/2019 15:23:45
== END | disposition home or self-care (01) ==
LOC: US 15:32
PROVIDERS: ATTEND Internal Medicine Cardiovascular Disease
DX: I70.203 Unspecified atherosclerosis of native arteries of extremities, bilateral legs (principal); M25.821 Other specified joint disorders, right elbow; M13.821 Other specified arthritis, right elbow; M25.551 Pain in right hip; M25.552 Pain in left hip
CPT/HCPCS: 73070; 73521; 93925

== ENCOUNTER → 2019-04-22 | Outpatient (CLI) | payer OTHER ==
--- NOTE | 2019-04-22 16:15 | RAD ---
CHEST PA LATERAL History: Cough for a few days, fever Comparison: September 11, 2016 Findings: 2 views of the chest are submitted. There again has been a median sternotomy. Heart size is stable. There is again mild apparent elevation of the right hemidiaphragm. There is no significant dependent pleural fluid or pneumothorax. No lobar consolidation is identified by radiographs. Impression: 1. No significant infiltrate is identified by radiographs. Electronically signed by: Rey Conway MD (04/22/2019 4:13 PM) [id number]
== END | disposition home or self-care (01) ==
LOC: DXRAD 15:17
PROVIDERS: ATTEND Registered Nurse
DX: R05 Cough (principal)
CPT/HCPCS: 71046

== ENCOUNTER → 2019-09-29 | Outpatient (CLI) | payer OTHER ==
--- NOTE | 2019-09-29 10:48 | RAD ---
History: Reason: PAD / Spl. Instructions: / History: Technique: Ultrasound was utilized to calculate an ankle brachial index. Findings: Right: Right brachial pressure 154 mmHg Right ankle pressure 66 mmHg Right ankle ALEXSANDRA 0.4 Left: Left brachial pressure 164 mmHg Left ankle pressure 82 mmHg Left ankle ALEXSANDRA 0.5 Impression: Decreased ankle brachial index bilaterally. This can be seen with severe peripheral vascular disease. Electronically signed by: Shankar Dunham MD (09/29/2019 10:45 AM) [id number]
--- NOTE | 2019-09-29 14:06 | RAD ---
MR#: [id number] Date of Study: 09/29/2019 Ordering Physician: CHARLENE JALLOH, Referring Physician: CHARLENE JALLOH, Tech: Shawna Porter RVT,CALINMS APPROVED REPORT Patient Location: OUT-PATIENT Indications Claudication: PAD On the right side the right common femoral artery appears to be patent, normal velocities are noted. There is a stent in the proximal to mid SFA which is subtotally occluded. The profunda is patent. The recently placed saphenous vein graft is occluded. Distal collateralization in the popliteal segm ent is noted. There is severely diminished flow in the distal to the popliteal artery. There is lik maryanne a distal anastomotic stenosis at the level of the vein graft into the popliteal artery. Suspicio us for critical limb ischemia below the knee. The left side has normal biphasic waveforms at the level of the common femoral artery. There are sev erely diminished monophasic waveforms throughout the SFA consistent with greater than 75% stenosis. There are elevated velocities in the popliteal segment likely the setting of reconstitution from subt otal occlusion in the SFA. Below the knee there is one-vessel runoff in the form of a peroneal arter y. The anterior tibial and posterior tibial arteries appear to be occluded. Risk Factors Hypertension Hyperlipidemia Surgery/Intervention Bypass Graft 1 : VELOCITY AND DOPPLER WAVEFORM ANALYSIS RIGHT cm/secWaveformSeverity LEFT cm/secWaveform Severity pCFA 109.9TriphasicpCFA 115.0Biphasic Prof Fem Art. 93.0MonophasicProf Fem Art. 68.0Biphasic Fem Art Prox. 82.3MonophasicFem Art Prox. 29.3Monophasic Fem Art Mid. 97.2MonophasicFem Art Mid. 50.6Monophasic Fem Art Dist. 97.2MonophasicFem Art Dist. 32.2Monophasic Pop Art(Fossa) 100.6MonophasicPop Art(AK) 134.2Monophasic COMPOSITION FLOOR SETTER Prox. OccludedPTA Prox. 13.4Monophasic COMPOSITION FLOOR SETTER Dist. OccludedPTA Dist. Occluded Per Art Prox. 20.5MonophasicPer Art Prox. 54.1Monophasic JAYESH Prox. OccludedATA Prox. Occluded DPA OccludedDPA Occluded Critical Notification Critical Value: Yes <Conclusion> 1. Severe bilateral below-knee disease likely secondary to more proximal right-sided graft occlusion and left-sided tanana SFA disease. 2. Case discussed with vascular surgery and interventional radiology. Patient will be taken to the lab for invasive angiography. Signed by : Charlene Jalloh, Electronically Approved : 09/29/2019 14:05:44
== END ==
LOC: US 08:55
PROVIDERS: ATTEND Internal Medicine Cardiovascular Disease
DX: T85.898A Other specified complication of other internal prosthetic devices, implants and grafts, initial encounter (principal); E78.5 Hyperlipidemia, unspecified; I73.9 Peripheral vascular disease, unspecified; Y83.8 Other surgical procedures as the cause of abnormal reaction of the patient, or of later complication, without mention of misadventure at the time of the procedure; Y92.89 Other specified places as the place of occurrence of the external cause
CPT/HCPCS: 93922; 93925

== ENCOUNTER → 2020-11-02 | Outpatient (CLI) | payer OTHER ==
[~2020-11-02] MED LIST changes: -LISI-338 PO; +LISI-517 PO; +LISI10TA16 PO; -LISI10TA2 PO
--- NOTE | 2020-11-02 13:39 | RAD ---
EXAM: Pelvis and left hip, 3 views. HISTORY: Pain. COMPARISON: None. FINDINGS: A frontal view of the pelvis and 2 views of the left hip are obtained. There is internal fi xation of a healed proximal left femoral fracture. There is mild marginal left acetabular spurring. T here are vascular clips within both proximal thighs and there is a proximal left thigh vascular stent . There is degenerative change involving the lumbar spine. IMPRESSION: 1. Internal fixation of a healed proximal left femoral fracture. 2. Mild left hip osteoarthritis. Electronically signed by: Sarai Echols MD (11/02/2020 1:36 PM) [id number]
== END ==
LOC: DXRAD 12:38
PROVIDERS: ATTEND Family Medicine
DX: M16.12 Unilateral primary osteoarthritis, left hip (principal); M76.892 Other specified enthesopathies of left lower limb, excluding foot; M47.816 Spondylosis without myelopathy or radiculopathy, lumbar region; M25.552 Pain in left hip; Z68.41 Body mass index [BMI] 40.0-44.9, adult; Z96.698 Presence of other orthopedic joint implants
CPT/HCPCS: 73502

== ENCOUNTER → 2020-12-11 | Outpatient (CLI) | payer OTHER ==
--- NOTE | 2020-12-11 11:54 | RAD ---
EXAM: Lumbar spine, 3 views. HISTORY: Pain. COMPARISON: 06/12/2016 FINDINGS: 3 views of the lumbar spine are obtained. There are suspected hypoplastic T12 ribs and 5 no nrib-bearing lumbar segments. Based on this numbering system, there is a severe chronic appearing com pression fracture at T12 with approximately two thirds decrease in anterior vertebral body height. Th ere is minimal grade 1 anterolisthesis of L5 on S1. There is multilevel endplate remodeling. There is facet arthropathy predominantly the lower lumbar levels. There is partial visual ablation of fixatio n its rotation within the left femur. IMPRESSION: 1. Severe chronic appearing compression fracture of T12. This is new compared to the prior study. 2. Multilevel degenerative change involving the thoracic and lumbar spine, primarily at the lower lum bar levels. Electronically signed by: Sarai Echols MD (12/11/2020 11:52 AM) [id number]
== END ==
LOC: RAD 11:15
PROVIDERS: ATTEND Family Medicine
DX: M47.815 Spondylosis without myelopathy or radiculopathy, thoracolumbar region (principal); M43.17 Spondylolisthesis, lumbosacral region
CPT/HCPCS: 72100

== ENCOUNTER → 2021-03-28 | Outpatient (CLI) | payer OTHER ==
[~2021-03-28] MED LIST changes: -LISI-517 PO; +LISI5TAB15 PO
[2021-03-28 13:54] LABS: CREATININE 0.8 mg/dL (0.6-1.0); GFR 69.9
[2021-03-28] MEDS: IOHEXOL 350 MG/ML 100 ML VIAL. IV ONE (14:10)
--- NOTE | 2021-03-28 15:39 | RAD ---
PQRS Compliance Statement: One or more of the following individualized dose reduction techniques were utilized for this examinat ion: 1. Automated exposure control 2. Adjustment of the mA and/or kV according to patient size 3. Use of iterative reconstruction technique CTA AORTA/RUNOFF W/WO +POST 03/28/2021 2:30 PM Indication: Peripheral vascular disease COMPARISON: None available. TECHNIQUE: Multiple axial CT images of the abdomen, pelvis and bilateral lower extremity arterial sys tem was performed after the intravenous demonstration of 100 cc Omnipaque 350. Coronal and sagittal r eformats are provided. Maximum intensity projection images are provided. FINDINGS: Mild peripheral groundglass changes involving the lung bases. Heart size is borderline enlarged. Asce nding thoracic aorta measures 2.8 cm. Moderate calcified atheromatous plaque involving the descending thoracic aorta. Liver, spleen, adrenal glands, pancreas and gallbladder are normal in appearance. Abdominal aorta is normal in caliber measuring up to 1.5 cm long infrarenal abdominal aorta. Dense calcified atheromatou s plaque. Superior mesenteric artery is widely patent. Celiac axis is widely patent. Calcified plaque identified at the origin of the left renal artery without significant plaque. The kidneys enhance symmetrically. There is no suspicious renal mass. There is no hydronephrosis. The re are no suspected calculi within the kidneys, ureters or urinary bladder. Small and large bowel are normal in caliber. There is no evidence for bowel obstruction. There are no pericolonic inflammatory changes. Fusiform dilatation of the appendix with fluid within the lumen me asuring up to 10 mm. Urinary bladder is within normal limits given degree of distention. No suspicious pelvic mass. Left h ip hardware is noted with lateral plate and screws. No lucency surrounding the hardware. No significa nt osseous abnormality. Right: Common iliac artery: Normal in course and caliber. Calcified atheromatous plaque is present. External iliac artery: Normal in course and caliber. Internal iliac artery: Normal in course and caliber. Common femoral artery: There is a pseudoaneurysm arising from the right common femoral artery measuri ng 8 x 7 mm. Deep femoral artery: Normal in course and caliber. Superficial femoral artery: There is high-grade stenosis at the origin of the right superficial femor al artery (series 8, image 193). There is a stent graft extending from the proximal superficial femor al artery to the distal right popliteal artery. Extensive intimal thickening with moderate to advance d multifocal stenosis identified. There is suggestion of occlusion the origin of the right popliteal artery. Popliteal artery: Stent graft extending to the right popliteal artery with occlusion at the proximal right popliteal artery. Three-vessel runoff: Reconstitution of the tibioperoneal trunk via collateral vessels from the profun da artery. There is occlusion of the anterior tibial artery. Peroneal artery and posterior tibial art karie are patent. Left: Common iliac artery: Normal in course and caliber. External iliac artery: Normal in course and caliber. Internal iliac artery: Normal in course and caliber. Common femoral artery: Normal in course and caliber. Deep femoral artery: Normal in course and caliber. Superficial femoral artery: There is occlusion of the proximal to mid left superficial femoral artery . Dense calcified plaque identified throughout the left superficial femoral artery. Popliteal artery: There is reconstitution a left popliteal artery, likely via collateral profunda ves sels. Three-vessel runoff: Severe irregularity of the posterior tibial artery. Peroneal arteries patent. An terior tibial artery is occluded. IMPRESSION: 1. Advanced atherosclerotic changes of the pelvic and lower extremity vessels as described in detail above. 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 2. Stent graft involving the right superficial femoral artery with severe stenosis at the origin and moderate irregularity and intimal thickening involving the right superficial femoral artery. 3. There is occlusion of the left superficial femoral artery with reconstitution at the popliteal art karie, possibly secondary to profunda collateral vessels. 4. Incidental findings as detailed above. 5. Fusiform dilatation of the appendix which is fluid-filled. Differential consideration would includ e a mucocele. Surgical consultation and 3-6 month follow-up CT abdomen and pelvis with contrast could be of benefit. Electronically signed by: Enid Sanchez MD (03/28/2021 3:36 PM) [facility]
== END ==
LOC: CT 13:02
PROVIDERS: ATTEND Registered Nurse Medical-Surgical
DX: I70.203 Unspecified atherosclerosis of native arteries of extremities, bilateral legs (principal); I72.4 Aneurysm of artery of lower extremity; R91.8 Other nonspecific abnormal finding of lung field; I70.0 Atherosclerosis of aorta
CPT/HCPCS: 36415; 75635; 82565; 84520; Q9967